=== PATIENT | male | born 1960 | race Caucasian/White ===

== ENCOUNTER 2024-11-08 08:10 | Outpatient (REF) | payer BC, SELFPAY ==
--- NOTE | ~2024-11-08 | XR_ITS ---
EXAMINATION: XR SHOULDER 2 OR MORE VIEWS RIGHT HISTORY: M25.519 - Pain in unspecified shoulder COMPARISON: There are no prior studies available for comparison. FINDINGS: Three views of the right shoulder are submitted. Osseous mineralization is normal. There is no fracture or dislocation. Glenohumeral joint is maintained. There is mild osteoarthritis AC joint with joint space narrowing and osteophyte formation. The soft tissues are unremarkable. XR/XR shoulder RT min 2V IMPRESSION: Mild osteoarthritis of the AC joint. Electronically signed by: Kamaljit Ferrara MD 11/08/2024 01:36 PM EDT
--- OUTSIDE RECORDS SUMMARY | 2024-11-09 08:30 | XMS_ITS | Clinical Summary ---
Author Organization [facility] [address] [facility] l[address] Address [address] [place] [address] Phone Care Team Providers Care Quality Control Auditor Name Role Phone Samuel Villareal MD Primary Care Provider [phone] Allergies No known active allergies Medications losartan (COZAAR) 50 mg tablet TAKE 1 TABLET BY MOUTH EVERY DAY 90 tablet 1 07/27/2024 Active Active Problems Problem Noted Date Diagnosed Date Overweight (BMI 25.0-29.9) 05/17/2023 Hypertriglyceridemia 09/22/2021 Overview (2024): ASCVD risk 8.2% in 08/2021 Primary hypertension 09/22/2021 Encounters Date Type Department Care Team Description 10/17/2024 Telephone Adult Medicine [facility] [address] [place] [phone] Samuel Villareal MD 10/11/2024 Telephone Adult Medicine - [facility] [address] [place] [phone] Samuel Villareal MD [facility] 09/24/2024 Telephone Adult Medicine [facility] [address] [place] [phone] Samuel Villareal MD Referral 09/20/2024 10:57 AM EST - 09/20/2024 11:59 PM EST Hospital Encounter Xray - [facility] [address] [place] [phone] Acute pain of right shoulder Discharge Disposition: Home or Self Care 09/20/2024 10:45 AM EST Office Visit Adult Medicine [address] [phone] Samuel Villareal MD Acute pain [...] 8:45 AM EDT Office Visit Adult Medicine [facility] [address] [place] [phone] Samuel Villareal MD [address] [place] [address] Health Maintenance Due Date Last Done Comments [...] LAB CHEMISTRY METHOD 09/21/2024 2:[address] [facility] Blood Venous blood specimen / Unknown Venipuncture / Unknown 09/21/2024 9:00 AM EST 09/21/2024 9:[address] [facility] - 09/21/2024 2:50 PM EST The Siemens Advia Centaur Chemiluminescent Immunoassay is used. Results obtained with different assay methods or kits cannot be used interchangeably. Results cannot be interpreted as absolute evidence of the presence or absence of malignant disease. Kelle GRIFFIN LAB BLOOD ORDERABLES Final Resul t Performing Organization Address [facility]/ZIP Co de Phone Number [facility] [address] [place] [address], [place] [phone] * (ABNORMAL) Lipid panel with reflex to direct LDL (09/21/2024 9:00 AM EST) Cholesterol 200 0 - 200 mg/dL LAB CHEMISTRY METHOD 09/21/2024 1:[address] [facility] Triglycerides 430(H) 0 - 150 mg/dL LAB CHEMISTRY METHOD 09/21/2024 1:[address] [facility] HDL 53 >=40 mg/dL LAB CHEMISTRY METHOD 09/21/2024 1:34 PM [facility] LDL Calculated 61 0 - 100 mg/dL LAB CHEMISTRY METHOD 09/21/2024 1:34 PM [facility] Comment:Unable to calculate when triglycerides >400 mg/dL. VLDL Cholesterol Juarez 86 mg/dL LAB CHEMISTRY METHOD 09/21/2024 1:[address] [facility] Comment:Unable to calculate when triglycerides >400 mg/dL. Non HDL Chol. (LDL+VLDL) 147(H) <145 mg/dL LAB CHEMISTRY METHOD 09/21/2024 1:[address] [facility] Comment:Unable to calculate when triglycerides >400 mg/dL. Chol/HDL Ratio 3.8 0.0 - 4.4 LAB CHEMISTRY METHOD 09/21/2024 1:[address] [facility] Blood Venous blood specimen / Unknown Venipuncture / Unknown 09/21/2024 9:00 AM EST 09/21/2024 9:00 AM EST Kelle GRIFFIN LAB BLOOD ORDERABLES Final Resul t Performing Organization Address City/[facility]/ZIP Co de Phone Number [facility] [address] [place] [address], [place] [phone] * (ABNORMAL) CBC auto differential (09/21/2024 9:00 AM EST) [facility] WBC 5.6 4.8 - 10.8 K/mcL LAB HEMETOLOGY METHOD 09/21/2024 11:36 AM [facility] RBC 4.90 4.50 - 5.50 M/mcL LAB HEMETOLOGY METHOD 09/21/2024 11:36 AM [facility] Hemoglobin 15.9 13.5 - 17.5 g/dL LAB HEMETOLOGY METHOD 09/21/2024 11:36 AM [facility] Hematocrit 45.7 42.0 - 54.0 % LAB HEMETOLOGY METHOD 09/21/2024 11:36 AM [facility] MCV 92.7 79.0 - 98.0 FL LAB HEMETOLOGY METHOD 09/21/2024 11:36 AM [facility] MCH 32.3(H) 27.0 - 32.0 pcg LAB HEMETOLOGY METHOD 09/21/2024 11:36 AM [facility] MCHC 34.8 32.0 - 37.0 g/dL LAB HEMETOLOGY METHOD 09/21/2024 11:36 AM [facility] RDW 11.2 11.0 - 15.0 % LAB HEMETOLOGY METHOD 09/21/2024 11:36 AM [facility] Platelets 279 130 - 400 K/[facility] LAB HEMETOLOGY METHOD 09/21/2024 11:36 AM [facility] MPV 10.4 7.0 - 11.0 FL LAB HEMETOLOGY METHOD 09/21/2024 11:36 AM [facility] NRBC 0.0 <1.0 % LAB HEMETOLOGY METHOD 09/21/2024 11:36 AM [facility] NRBC Absolute 0.00 <0.10 K/mcL LAB HEMETOLOGY METHOD 09/21/2024 11:36 AM [facility] Neutrophils Relative 63.9 % LAB HEMETOLOGY METHOD 09/21/2024 11:36 AM [facility] Lymphocytes Relative 22.0 % LAB HEMETOLOGY METHOD 09/21/2024 11:36 AM [facility] Monocytes Relative 10.3 % LAB HEMETOLOGY METHOD 09/21/2024 11:36 AM [facility] Eosinophils Relative 2.5 % LAB HEMETOLOGY METHOD 09/21/2024 11:36 AM [facility] Basophils Relative 0.9 % LAB HEMETOLOGY METHOD 09/21/2024 11:36 AM [facility] Immature Granulocytes Relative 0.4 % LAB HEMETOLOGY METHOD 09/21/2024 11:36 AM [facility] Neutrophils Absolute 3.60 1.50 - 7.00 K/mcL LAB HEMETOLOGY METHOD 09/21/2024 11:36 AM [facility] Lymphocytes Absolute 1.24 1.00 - 5.00 K/mcL LAB HEMETOLOGY METHOD 09/21/2024 11:36 AM [facility] Monocytes Absolute 0.58 0.20 - 1.00 K/mcL LAB HEMETOLOGY METHOD 09/21/2024 11:36 AM [facility] Eosinophils Absolute 0.14 0.00 - 0.50 K/mcL LAB HEMETOLOGY METHOD 09/21/2024 11:36 AM [facility] Basophils Absolute 0.05 0.00 - 0.20 K/mcL LAB HEMETOLOGY METHOD 09/21/2024 11:36 AM [facility] Immature Granulocytes Absolute 0.02 0.00 - 0.03 K/mcL LAB HEMETOLOGY METHOD 09/21/2024 11:36 AM [facility] Blood Venous blood specimen / Unknown Venipuncture / Unknown 09/21/2024 9:00 AM EST 09/21/2024 9:00 AM EST us Kelle GRIFFIN LAB BLOOD ORDERABLES Final Resul t [facility] [address] [place] [address], [place] [phone] * (ABNORMAL) Comprehensive metabolic panel (09/21/2024 9:00 AM EST) Sodium 138 133 - 145 mmol/L LAB CHEMISTRY METHOD 09/21/2024 1:22 PM [facility] Potassium 4.4 3.5 - 5.5 mmol/L LAB CHEMISTRY METHOD 09/21/2024 1:22 PM [facility] Chloride 107 96 - 110 mmol/L LAB CHEMISTRY METHOD 09/21/2024 1:22 PM [facility] CO2 25 21 - 32 mmol/L LAB CHEMISTRY METHOD 09/21/2024 1:22 PM [facility] Anion Gap 6 3 - 11 LAB CHEMISTRY METHOD 09/21/2024 1:22 PM [facility] Glucose 106(H) 70 - 100 mg/dL LAB CHEMISTRY METHOD 09/21/2024 1:22 PM [facility] BUN 15 5 - 25 mg/dL LAB CHEMISTRY METHOD 09/21/2024 1:22 PM [facility] Creatinine 1.04 0.70 - 1.30 mg/dL LAB CHEMISTRY METHOD 09/21/2024 1:22 PM [facility] eGFR 81 >=60 mL/min/1. 73m2 LAB CHEMISTRY METHOD 09/21/2024 1:22 PM [facility] Comment:Calculation based on the??Chronic Kidney Disease Epidemiology Collaboration (CKD-EPI) equation refit??without adjustment for race. BUN/Creatinine Ratio 14.4 LAB CHEMISTRY METHOD 09/21/2024 1:22 PM [facility] Calcium 9.7 8.5 - 10.5 mg/dL LAB CHEMISTRY METHOD 09/21/2024 1:[address] [facility] AST (SGOT) 24 10 - 42 unit/L LAB CHEMISTRY METHOD 09/21/2024 1:22 PM [facility] ALT (SGPT) 45 10 - 60 unit/L LAB CHEMISTRY METHOD 09/21/2024 1:22 PM [facility] Alkaline Phosphatase 99 42 - 121 unit/L LAB CHEMISTRY METHOD 09/21/2024 1:[address] [facility] Total Protein 7.8 6.0 - 8.0 g/dL LAB CHEMISTRY METHOD 09/21/2024 1:22 PM [facility] Albumin 4.5 3.2 - 5.0 g/dL LAB CHEMISTRY METHOD 09/21/2024 1:22 PM [facility] Total Bilirubin 1.8(H) 0.0 - 1.4 mg/dL LAB CHEMISTRY METHOD 09/21/2024 1:[address] [facility] Blood Venous blood specimen / Unknown Venipuncture / Unknown 09/21/2024 9:00 AM EST 09/21/2024 9:00 AM EST us Kelle GRIFFIN LAB BLOOD ORDERABLES Final Resul t [facility] [address] [place] [address], * XR Shoulder 2+ Views Right (09/20/2024 11:06 AM EST) Anatomical Region Laterality Modality Upper Extremities, Shoulder Right Radi ographic Imaging 09/20/2024 8:08 PM EST Impressions 09/20/2024 8:11 PM EST No fracture or dislocation. ??Degenerative changes at the acromioclavicular joint. POS - [id number] -------- FINAL REPORT -------- Dictated By: Nisha Matos Dictated Date: 09/20/2024 20:08 ET Assigned Physician: Nisha Matos Reviewed and Electronically Signed By: Nisha Matos Signed Date: 09/20/2024 20:11 ET Workstation ID: [id number] Transcribed By: Self Edit Transcribed Date: 09/20/2024 [...] Degenerative changes at the acromioclavicularjoint. POS - [id number] -------- FINAL REPORT -------- Dictated By: Nisha Matos Dictated Date: 09/20/2024 20:08 ET Assigned Physician: Nisha Matos Reviewed and Electronically Signed By: Nisha Matos Signed Date: 09/20/2024 20:11 ET Workstation ID: [id number] Transcribed By: Self Edit Transcribed Date: 09/20/2024 [...] Most Recently Relevant to Health Maintenance Insurance [facility] Care Teams Quality Control Auditor Relationship Specialty Start Date End Date Samuel Villareal MD [address] [place] [id number] PCP - General 07/01/03
== END 2024-11-08 08:11 | disposition home or self-care (01) ==
LOC: HO.HOSX 08:10
PROVIDERS: Visit Provider Physician Assistant
DX: M75.101 Unspecified rotator cuff tear or rupture of right shoulder, not specified as traumatic (principal); S46.001A Unspecified injury of muscle(s) and tendon(s) of the rotator cuff of right shoulder, initial encounter
CPT/HCPCS: 73030

== ENCOUNTER 2024-11-08 09:23 | Outpatient (AMB) | payer BC, SELFPAY ==
--- NOTE | 2024-11-08 09:51 | A.OFFVIS_ITS ---
Vital Signs 11/08/24 09:56 Height 6 ft Weight 200 lb BMI 27.1 Handedness Right Intake Visit Reasons: New Pt - right shoulder pain Intake Note: Angelito is a 64 year old right hand dominant male who presents today as a new patient for a evaluation of his right shoulder pain, DOI 06/2024. Hx of [facility]. Patient reports ongoing pain for about for a couple months. He states that his pain is on the anterior aspect of the shoulder and it moves down to his bicep. Patient reports that his pain is worse when he is overhead reaching and laying on his side. He states that he hasn't taken medication for the pain just PT. Allergies No Known Allergies Allergy (Verified 11/08/24 09:55) HPI HPI New Pt - right shoulder pain: Details: The patient is a 64-year-old right hand dominant male presenting with right shoulder pain and limited range of motion. This condition arose following a fall on ice on July 14, where the patient landed directly on the right shoulder. Initially, the discomfort was mild, but the range of motion has been significantly limited. The patient reports an inability to raise the shoulder above shoulder level, a notable change from the full range of motion before the injury. The patient has engaged in six to seven physical therapy sessions since August, which have led to some improvement but not full recovery of motion. [facility] Social History (Updated 11/08/24 @ 09:56 by [place]) Alcohol intake: current Alcohol intake frequency: 0-2 drinks per day Patient Tobacco Use Status: Never used Tobacco Current occupational status: retired Current occupation: right hand dominant Review of Systems Const All systems reviewed & are unremarkable except as noted in HPI and below Physical Exam Vital Signs: BMI result Body Mass Index 27.1 Const General: cooperative, healthy appearing and no acute distress Resp Effort & Inspection: normal respiratory effort and able to speak in complete sentences Cardio Rate: regular rate Peripheral pulses: Peripheral pulses 2+ throughout Skin Lesions: no lesions Rashes: no rashes Extrem Other: Right shoulder: Forward flexion and abduction to 80 degrees. Pain with cross- body reach. 3/5 strength with empty can, belly press and lift-off. Negative drop arm. NVI. Assessment & Plan Assessment & Plan (1) Painful arc syndrome of right shoulder: Code(s): M75.101 - Unspecified rotator cuff tear or rupture of right shoulder, not specified as traumatic Category: Medical (2) Injury of right rotator cuff: Code(s): S46.001A - Unspecified injury of muscle(s) and tendon(s) of the rotator cuff of right shoulder, initial encounter Category: Medical Plan During the visit, I explained to the patient the potential for a rotator cuff injury contributing to his shoulder symptoms, and the need for an MRI to better assess the internal structures of the shoulder. The patient expressed understanding and agreed to proceed with scheduling the MRI. We discussed the possibility of a cortisone injection later, outlining its benefits in reducing inflammation but also noting that it does not address the underlying cause permanently. I reassured the patient that a referral to a specialist does not imply an automatic need for surgery and may assist in more accurate interpretations of advanced imaging. The patient should contact me after obtaining the MRI for further discussion and determination of the next steps. X-rays of the right shoulder which were obtained while in the office today and were reviewed by me, Sloane Conley PA-C, revealed no acute fracture dislocation. Orders: Orders XR shoulder RT min 2V Today M25.519 - Pain in unspecified shoulder Coding Level of Care Code New Pt Level 4 (22902) Diagnoses Painful arc syndrome of right shoulder M75.101 Injury of right rotator cuff S46.001A
[2024-11-08 09:56] VITALS: BMI 27.1
--- OUTSIDE RECORDS SUMMARY | 2024-11-08 10:37 | XMS_ITS | Clinical Summary ---
Author Organization [facility] [address] [facility] Address [address] [place] [address] Phone Care Team Providers Care Fire Chief Name Role Phone Samuel Villareal MD Primary Care Provider [phone] Allergies No known active allergies Medications losartan (COZAAR) 50 mg tablet TAKE 1 TABLET BY MOUTH EVERY DAY 90 tablet 1 07/27/2024 Active Active Problems Problem Noted Date Diagnosed Date Overweight (BMI 25.0-29.9) 05/17/2023 Hypertriglyceridemia 09/22/2021 Overview (2024): ASCVD risk 8.2% in 08/2021 Primary hypertension 09/22/2021 Encounters Date Type Department Care Team Description 10/17/2024 Telephone Adult Medicine [facility] [address] [place] [phone] Samuel Villareal MD 10/11/2024 Telephone Adult Medicine - [place] [address] [place] [phone] Samuel Villareal MD [facility] 09/24/2024 Telephone Adult Medicine [facility] [address] [place] [phone] Samuel Villareal MD Referral 09/20/2024 10:57 AM EST - 09/20/2024 11:59 PM EST Hospital Encounter Xray - [place] [address] [place] [phone] Acute pain of right shoulder Discharge Disposition: Home or Self Care 09/20/2024 10:45 AM EST Office Visit Adult Medicine [address] [phone] Samuel Villareal MD Acute pain of right shoulder (Primary Dx) from Last 3 Months Immunizations Name Administration Dates Next Due Td Tetanus diptheria (Tdvax) 7yo and older 09/03,09/04/2003 Tdap Tetanus diptheria acell ular pertussis (Boostrix; Adacel) 7yo and older 06/07/2011 Surgical History Surgery Date Site/Laterality Comments COLONOSCOPY 08/16/11 PROCEDURE: HISTORICAL COLONOSCOPY; COMMENT: normal Medical History Medical History Date Comments Patient denies medical problems DX:Patient denies medical problems Family History Medical History Relation Name Comments Coronary artery disease Brother 1 Hypertension Brother 1 Relation Name Status Comments Brother 1 Alive Brother 2 Alive Father (Age 59) ?Liver kezia lure, alcohol use Maternal Grandfather hx unkn own Maternal Grandmother hx unkn own Mother ?lung cancer Paternal Grandfather hx unkn own Paternal Grandmother hx unkn own Social History Tobacco Use Types Packs/Day Years Used Date Smoking Tobacco: Never Smokeless Tobacco: Never Tobacco Cessation:Counseling Given: Not Answered Alcohol Use Standard Drinks/Week Comments Yes 0 (1 standard drink = 0.6 oz pur e alcohol) Sex and Gender Information Value Date Recorded Sex Assigned at Not on file Legal Sex Male 4:37 PM EST Gender Identity Not on file Sexual Orientation Not on file Obstetrics History Last Filed Vital Signs Vital Sign Reading Time Taken Comments Blood Pressure 136/87 09/20/2024 10:34 AM EST Pulse 86 09/20/2024 10:34 AM EST Temperature 36.7 ??C (98 ??F) 09/20/2024 10:34 AM EST Respiratory Rate - - Oxygen Saturation - - Inhaled Oxygen Concentration - - Weight 92.1 kg (203 lb) 09/20/2024 10:34 AM EST Height 182.9 cm (6') 09/20/2024 10:34 AM EST Body Mass Index 27.53 09/20/2024 10:34 AM EST Plan of Treatment Upcoming Encounters Date Type Department Care Team (Late st Contact Info) Description 03/21/2025 8:45 AM EDT Office Visit Adult Medicine [facility] [address] [place] [phone] Samuel Villareal MD [address] [place] [address] Health Maintenance Due Date Last Done Comments Pneumococcal Vaccine: 50+ Years (1 of 1 - PCV) 2011 Depression Screening 07/04/2022 HIV Screening 07/04/2022 Social Influencers of Health Screening 07/04/2022 COVID-19 Vaccine (3 - 2023-2 5 season) 2024 12/09/2020, 11/11/2020 Influenza Vaccine (Season Ended) 2025 Hypertension/CHF/CAD Annual BMP Blood Test 09/21/2025 09/21/2024, 05/17/2023 Cholesterol Screening (Lipid Panel) 09/21/2029 09/21/2024, 05/17/2023 DTaP,Tdap,and Td Vaccines (4 - Td or Tdap) 09/03/2031 09/03/2021, 06/07/2011, 09/04/2003 Colorectal Cancer Screening: Colonoscopy 12/29/2031 12/28/2021 RSV Immunization Adult Patients (1 - 1-dose 75+ series) 2036 Hepatitis C Screening Completed 04/14/2015 Zoster Vaccines Completed 03/04/2023, 12/10/2022 HIB Vaccines Aged Out No longer eligi ble based on patient's age to complete this topic HPV Vaccines Aged Out No longer eligi ble based on patient's age to complete this topic Hepatitis A Vaccines Aged Out No long er eligible based on patient's age to complete this topic Hepatitis B Vaccines Aged Out No long er eligible based on patient's age to complete this topic IPV Vaccines Aged Out No longer eligi ble based on patient's age to complete this topic MMR Vaccines Aged Out No longer eligi ble based on patient's age to complete this topic Meningococcal ACWY Vaccine Aged Out N o longer eligible based on patient's age to complete this topic Meningococcal B Vaccine Aged Out No l onger eligible based on patient's age to complete this topic Pneumococcal Vaccine: Pediatrics (0 to 5 Years) and At-Risk Patients (6 to 64 Years) Aged Out No longer eligible b ased on patient's age to complete this topic RSV Immunization Patients Under 20 months Aged Out No longer eligible b ased on patient's age to complete this topic Varicella Vaccines Aged Out No longer eligible based on patient's age to complete this topic Procedures Procedure Name Priority Date/Time Associated Diagnosis Comments CBC WITH AUTO DIFFERENTIAL Routine 09/21/2024 9:00 AM EST Primary hypertension PROSTATE SPECIFIC ANTIGEN SCREEN Routine 09/21/2024 9:00 AM EST Prostate cancer screening COMPREHENSIVE METABOLIC PANEL Routine 09/21/2024 9:00 AM EST Primary hypertension CBC AND DIFFERENTIAL Routine 09/21/2024 9:00 AM EST Primary hypertension LIPID PANEL WITH REFLEX TO DIRECT LDL Routine 09/21/2024 9:00 AM EST Hypertriglyceridemia XR SHOULDER 2+ VIEWS RIGHT Routine 09/20/2024 11:06 AM EST Acute pain of right shoulder HM COLONOSCOPY Routine 12/28/2021 HEPATITIS C SCREENING Routine 04/14/2015 from Last 3 Months or Most Recently Relevant to Health Maintenance Results * Prostate specific antigen screen (09/21/2024 9:00 AM EST) PSA 1.43 0.00 - 4.00 ng/mL LAB CHEMISTRY METHOD 09/21/2024 2:50 PM EST [facility] Blood Venous blood specimen / Unknown Venipuncture / Unknown 09/21/2024 9:00 AM EST 09/21/2024 9:00 AM EST Narrative [facility] - 09/21/2024 2:50 PM EST The Siemens Advia Centaur Chemiluminescent Immunoassay is used. Results obtained with different assay methods or kits cannot be used interchangeably. Results cannot be interpreted as absolute evidence of the presence or absence of malignant disease. Kelle GRIFFIN LAB BLOOD ORDERABLES Final Resul t Performing Organization Address [facility]/ZIP Co de Phone Number [facility] [address] [place] [address], [place] [phone] * (ABNORMAL) Lipid panel with reflex to direct LDL (09/21/2024 9:00 AM EST) Cholesterol 200 0 - 200 mg/dL LAB CHEMISTRY METHOD 09/21/2024 1:34 PM EST [facility] Triglycerides 430(H) 0 - 150 mg/dL LAB CHEMISTRY METHOD 09/21/2024 1:34 PM EST [facility] HDL 53 >=40 mg/dL LAB CHEMISTRY METHOD 09/21/2024 1:34 PM [facility] LDL Calculated 61 0 - 100 mg/dL LAB CHEMISTRY METHOD 09/21/2024 1:34 PM [facility] Comment:Unable to calculate when triglycerides >400 mg/dL. VLDL Cholesterol Juarez 86 mg/dL LAB CHEMISTRY METHOD 09/21/2024 1:34 PM EST [facility] Comment:Unable to calculate when triglycerides >400 mg/dL. Non HDL Chol. (LDL+VLDL) 147(H) <145 mg/dL LAB CHEMISTRY METHOD 09/21/2024 1:34 PM EST [facility] Comment:Unable to calculate when triglycerides >400 mg/dL. Chol/HDL Ratio 3.8 0.0 - 4.4 LAB CHEMISTRY METHOD 09/21/2024 1:34 PM EST [facility] Blood Venous blood specimen / Unknown Venipuncture / Unknown 09/21/2024 9:00 AM EST 09/21/2024 9:00 AM EST Kelle GRIFFIN LAB BLOOD ORDERABLES Final Resul t Performing Organization Address City/[facility]/ZIP Co de Phone Number [facility] [address] [place] [address], [place] [phone] * (ABNORMAL) CBC auto differential (09/21/2024 9:00 AM EST) [facility] WBC 5.6 4.8 - 10.8 K/mcL LAB HEMETOLOGY METHOD 09/21/2024 11:36 AM [facility] RBC 4.90 4.50 - 5.50 M/mcL LAB HEMETOLOGY METHOD 09/21/2024 11:36 AM [facility] Hemoglobin 15.9 13.5 - 17.5 g/dL LAB HEMETOLOGY METHOD 09/21/2024 11:36 AM [facility] Hematocrit 45.7 42.0 - 54.0 % LAB HEMETOLOGY METHOD 09/21/2024 11:36 AM [facility] MCV 92.7 79.0 - 98.0 FL LAB HEMETOLOGY METHOD 09/21/2024 11:36 AM [facility] MCH 32.3(H) 27.0 - 32.0 pcg LAB HEMETOLOGY METHOD 09/21/2024 11:36 AM [facility] MCHC 34.8 32.0 - 37.0 g/dL LAB HEMETOLOGY METHOD 09/21/2024 11:36 AM [facility] RDW 11.2 11.0 - 15.0 % LAB HEMETOLOGY METHOD 09/21/2024 11:36 AM [facility] Platelets 279 130 - 400 K/[facility] LAB HEMETOLOGY METHOD 09/21/2024 11:36 AM [facility] MPV 10.4 7.0 - 11.0 FL LAB HEMETOLOGY METHOD 09/21/2024 11:36 AM [facility] NRBC 0.0 <1.0 % LAB HEMETOLOGY METHOD 09/21/2024 11:36 AM [facility] NRBC Absolute 0.00 <0.10 K/mcL LAB HEMETOLOGY METHOD 09/21/2024 11:36 AM [facility] Neutrophils Relative 63.9 % LAB HEMETOLOGY METHOD 09/21/2024 11:36 AM [facility] Lymphocytes Relative 22.0 % LAB HEMETOLOGY METHOD 09/21/2024 11:36 AM [facility] Monocytes Relative 10.3 % LAB HEMETOLOGY METHOD 09/21/2024 11:36 AM [facility] Eosinophils Relative 2.5 % LAB HEMETOLOGY METHOD 09/21/2024 11:36 AM [facility] Basophils Relative 0.9 % LAB HEMETOLOGY METHOD 09/21/2024 11:36 AM [facility] Immature Granulocytes Relative 0.4 % LAB HEMETOLOGY METHOD 09/21/2024 11:36 AM [facility] Neutrophils Absolute 3.60 1.50 - 7.00 K/mcL LAB HEMETOLOGY METHOD 09/21/2024 11:36 AM [facility] Lymphocytes Absolute 1.24 1.00 - 5.00 K/mcL LAB HEMETOLOGY METHOD 09/21/2024 11:36 AM [facility] Monocytes Absolute 0.58 0.20 - 1.00 K/mcL LAB HEMETOLOGY METHOD 09/21/2024 11:36 AM [facility] Eosinophils Absolute 0.14 0.00 - 0.50 K/mcL LAB HEMETOLOGY METHOD 09/21/2024 11:36 AM [facility] Basophils Absolute 0.05 0.00 - 0.20 K/mcL LAB HEMETOLOGY METHOD 09/21/2024 11:36 AM [facility] Immature Granulocytes Absolute 0.02 0.00 - 0.03 K/mcL LAB HEMETOLOGY METHOD 09/21/2024 11:36 AM [facility] Blood Venous blood specimen / Unknown Venipuncture / Unknown 09/21/2024 9:00 AM EST 09/21/2024 9:00 AM EST us Kelle GRIFFIN LAB BLOOD ORDERABLES Final Resul t [facility] [address] [place] [address], [place] [phone] * (ABNORMAL) Comprehensive metabolic panel (09/21/2024 9:00 AM EST) Sodium 138 133 - 145 mmol/L LAB CHEMISTRY METHOD 09/21/2024 1:22 PM [facility] Potassium 4.4 3.5 - 5.5 mmol/L LAB CHEMISTRY METHOD 09/21/2024 1:22 PM [facility] Chloride 107 96 - 110 mmol/L LAB CHEMISTRY METHOD 09/21/2024 1:22 PM [facility] CO2 25 21 - 32 mmol/L LAB CHEMISTRY METHOD 09/21/2024 1:22 PM [facility] Anion Gap 6 3 - 11 LAB CHEMISTRY METHOD 09/21/2024 1:22 PM [facility] Glucose 106(H) 70 - 100 mg/dL LAB CHEMISTRY METHOD 09/21/2024 1:22 PM [facility] BUN 15 5 - 25 mg/dL LAB CHEMISTRY METHOD 09/21/2024 1:22 PM [facility] Creatinine 1.04 0.70 - 1.30 mg/dL LAB CHEMISTRY METHOD 09/21/2024 1:22 PM [facility] eGFR 81 >=60 mL/min/1. 73m2 LAB CHEMISTRY METHOD 09/21/2024 1:22 PM [facility] Comment:Calculation based on the??Chronic Kidney Disease Epidemiology Collaboration (CKD-EPI) equation refit??without adjustment for race. BUN/Creatinine Ratio 14.4 LAB CHEMISTRY METHOD 09/21/2024 1:22 PM [facility] Calcium 9.7 8.5 - 10.5 mg/dL LAB CHEMISTRY METHOD 09/21/2024 1:22 PM EST [facility] AST (SGOT) 24 10 - 42 unit/L LAB CHEMISTRY METHOD 09/21/2024 1:22 PM [facility] ALT (SGPT) 45 10 - 60 unit/L LAB CHEMISTRY METHOD 09/21/2024 1:22 PM [facility] Alkaline Phosphatase 99 42 - 121 unit/L LAB CHEMISTRY METHOD 09/21/2024 1:22 PM EST [facility] Total Protein 7.8 6.0 - 8.0 g/dL LAB CHEMISTRY METHOD 09/21/2024 1:22 PM [facility] Albumin 4.5 3.2 - 5.0 g/dL LAB CHEMISTRY METHOD 09/21/2024 1:22 PM [facility] Total Bilirubin 1.8(H) 0.0 - 1.4 mg/dL LAB CHEMISTRY METHOD 09/21/2024 1:22 PM EST [facility] Blood Venous blood specimen / Unknown Venipuncture / Unknown 09/21/2024 9:00 AM EST 09/21/2024 9:00 AM EST us Kelle GRIFFIN LAB BLOOD ORDERABLES Final Resul t [facility] [address] [place] [address], * XR Shoulder 2+ Views Right (09/20/2024 11:06 AM EST) Anatomical Region Laterality Modality Upper Extremities, Shoulder Right Radi ographic Imaging 09/20/2024 8:08 PM EST Impressions 09/20/2024 8:11 PM EST No fracture or dislocation. ??Degenerative changes at the acromioclavicular joint. POS - [id number] -------- FINAL REPORT -------- Dictated By: Nisha Matos Dictated Date: 09/20/2024 20:08 ET Assigned Physician: Nisha Matos Reviewed and Electronically Signed By: Nisha Matos Signed Date: 09/20/2024 20:11 ET Workstation ID: [id number] Transcribed By: Self Edit Transcribed Date: 09/20/2024 20:08 ET Narrative 09/20/2024 8:11 PM EST EXAM: Right shoulder x-ray HISTORY: Right shoulder pain. ??History of a fall on ice in June 2024. COMPARISON: None FINDINGS: 4 views performed. No fracture detected. ??No dislocation. ??Mild to moderate degenerative changes at the acromioclavicular joint with joint space narrowing and spurring. ??No appreciable degenerative changes at the glenohumeral joint. ??No destructive bone lesion. ??No soft tissue calcifications. Procedure Note Nisha Matos MD - 09/20/2024 EXAM: Right shoulder x-ray HISTORY: Right shoulder pain. History of a fall on ice in June2024. COMPARISON: None FINDINGS: 4 views performed. No fracture detected. No dislocation. Mild to moderate degenerativechanges at the acromioclavicular joint with joint space narrowing andspurring. No appreciable degenerative changes at the glenohumeral joint.No destructive bone lesion. No soft tissue calcifications. IMPRESSION: No fracture or dislocation. Degenerative changes at the acromioclavicularjoint. POS - [id number] -------- FINAL REPORT -------- Dictated By: Nisha Matos Dictated Date: 09/20/2024 20:08 ET Assigned Physician: Nisha Matos Reviewed and Electronically Signed By: Nisha Matos Signed Date: 09/20/2024 20:11 ET Workstation ID: [id number] Transcribed By: Self Edit Transcribed Date: 09/20/2024 20:08 ET C Jonny Villareal MD IMG XR PROCEDURES Final Result * Colonoscopy (12/28/2021) Colonoscopy No interpreta tion,abstr acted Anatomical Region Laterality Modality Other Historical Provider HEALTH MAINTENANCE Final Result * Hepatitis C Screening (04/14/2015) Hepatitis C Screening Abstracted Historical Provider HEALTH MAINTENANCE Final Result from Last 3 Months or Most Recently Relevant to Health Maintenance Insurance [facility] Care Teams Fire Chief Relationship Specialty Start Date End Date Samuel Villareal MD [address] [place] [phone] PCP - General 07/01/03
== END 2024-11-08 10:24 | disposition home or self-care (01) ==
LOC: HO.HOS 09:23
PROVIDERS: PCP Pediatrics; Visit Provider Physician Assistant
DX: M75.101 Unspecified rotator cuff tear or rupture of right shoulder, not specified as traumatic (principal); S46.001A Unspecified injury of muscle(s) and tendon(s) of the rotator cuff of right shoulder, initial encounter
CPT/HCPCS: 99204

== ENCOUNTER → 2024-11-08 09:27 | Outpatient (BNV) | payer BC, SELFPAY | PROVIDERS: Visit Provider Radiology Diagnostic Radiology | DX: M25.511 Pain in right shoulder (principal); M19.011 Primary osteoarthritis, right shoulder | CPT/HCPCS: 73030 ==

== ENCOUNTER 2024-11-13 08:09 | Outpatient (REF) | payer BC, SELFPAY ==
--- NOTE | ~2024-11-13 | MR_ITS ---
CLINICAL HISTORY: M75.101 - Unspecified rotator cuff tear or rupture of right shoulder, no... MR right shoulder without gadolinium Comparison: None Findings: No acute fracture or pathologic bone lesion. Moderate acromioclavicular degenerative change with mild capsular hypertrophy. Type 1 acromion. There is subdeltoid, subacromial, and a small amount of subcoracoid fluid. Small amount of fluid in the biceps tendon sheath. Complete tear supraspinatus tendon. Approximately 2.6 cm of retraction. Moderate atrophy of the supraspinatus muscle. Subscapularis, infraspinatus, and teres minor tendons are intact. No muscle atrophy. No tears of the long head of biceps tendon. Glenoid labrum is intact. IMPRESSION: 1. Complete supraspinatus tear with retraction and muscle atrophy. 2. Subdeltoid, subacromial, and subcoracoid fluid. 3. Moderate acromioclavicular degenerative change. This document has been electronically signed by: Theo Jacinto MD on 11/15/2024 04:15:33
--- OUTSIDE RECORDS SUMMARY | 2024-11-13 08:22 | XMS_ITS | Clinical Summary ---
Author Organization [facility] [address] [facility] l[address] Address [address] [place] [address] Phone Care Team Providers Care Telephone Operator Receptionist Name Role Phone Samuel Villareal MD Primary Care Provider [phone] Allergies No known active allergies Medications losartan (COZAAR) 50 mg tablet TAKE 1 TABLET BY MOUTH EVERY DAY 90 tablet 1 07/27/2024 Active Active Problems Problem Noted Date Diagnosed Date Overweight (BMI 25.0-29.9) 05/17/2023 Hypertriglyceridemia 09/22/2021 Overview (2024): ASCVD risk 8.2% in 08/2021 Primary hypertension 09/22/2021 Encounters Date Type Department Care Team Description 10/17/2024 Telephone Adult Medicine [facility] [address] [place] [phone] Samuel Villareal MD 10/11/2024 Telephone Adult Medicine - [facility] [address] [place] [phone] Samuel Villareal MD [facility] 09/24/2024 Telephone Adult Medicine [facility] [address] [place] [phone] Samuel Villareal MD Referral 09/20/2024 10:57 AM EST - 09/20/2024 11:59 PM EST Hospital Encounter Xray - [facility] [address] [place] [phone] Acute pain of right shoulder Discharge Disposition: Home or Self Care 09/20/2024 10:45 AM EST Office Visit Adult Medicine [address] [phone] Samuel Villareal MD Acute pain [...] 8:45 AM EDT Office Visit Adult Medicine [facility] [address] [place] [phone] Samuel Villareal MD [address] [place] [address] Health Maintenance Due Date Last Done Comments [...] LAB CHEMISTRY METHOD 09/21/2024 2:50 PM EST [facility] Blood Venous blood specimen / Unknown Venipuncture / Unknown 09/21/2024 9:00 AM EST 09/21/2024 9:00 AM EST Narrative [facility] - 09/21/2024 2:50 PM EST The Siemens Advia Centaur Chemiluminescent Immunoassay is used. Results obtained with different assay methods or kits cannot be used interchangeably. Results cannot be interpreted as absolute evidence of the presence or absence of malignant disease. Kelle GRIFFIN LAB BLOOD ORDERABLES Final Resul t Performing Organization Address [facility]/ZIP Co de Phone Number [facility] [address] [place] [address], [place] [phone] * (ABNORMAL) Lipid panel with reflex to direct LDL (09/21/2024 9:00 AM EST) Cholesterol 200 0 - 200 mg/dL LAB CHEMISTRY METHOD 09/21/2024 1:34 PM EST [facility] Triglycerides 430(H) 0 - 150 mg/dL LAB CHEMISTRY METHOD 09/21/2024 1:34 PM EST [facility] HDL 53 >=40 mg/dL LAB CHEMISTRY METHOD 09/21/2024 1:34 PM [facility] LDL Calculated 61 0 - 100 mg/dL LAB CHEMISTRY METHOD 09/21/2024 1:34 PM [facility] Comment:Unable to calculate when triglycerides >400 mg/dL. VLDL Cholesterol Juarez 86 mg/dL LAB CHEMISTRY METHOD 09/21/2024 1:34 PM EST [facility] Comment:Unable to calculate when triglycerides >400 mg/dL. Non HDL Chol. (LDL+VLDL) 147(H) <145 mg/dL LAB CHEMISTRY METHOD 09/21/2024 1:34 PM EST [facility] Comment:Unable to calculate when triglycerides >400 mg/dL. Chol/HDL Ratio 3.8 0.0 - 4.4 LAB CHEMISTRY METHOD 09/21/2024 1:34 PM EST [facility] Blood Venous blood specimen / Unknown Venipuncture / Unknown 09/21/2024 9:00 AM EST 09/21/2024 9:00 AM EST Kelle GRIFFIN LAB BLOOD ORDERABLES Final Resul t Performing Organization Address City/[facility]/ZIP Co de Phone Number [facility] [address] [place] [address], [place] [phone] * (ABNORMAL) CBC auto differential (09/21/2024 9:00 AM EST) [facility] WBC 5.6 4.8 - 10.8 K/mcL LAB HEMETOLOGY METHOD 09/21/2024 11:36 AM [facility] RBC 4.90 4.50 - 5.50 M/mcL LAB HEMETOLOGY METHOD 09/21/2024 11:36 AM [facility] Hemoglobin 15.9 13.5 - 17.5 g/dL LAB HEMETOLOGY METHOD 09/21/2024 11:36 AM [facility] Hematocrit 45.7 42.0 - 54.0 % LAB HEMETOLOGY METHOD 09/21/2024 11:36 AM [facility] MCV 92.7 79.0 - 98.0 FL LAB HEMETOLOGY METHOD 09/21/2024 11:36 AM [facility] MCH 32.3(H) 27.0 - 32.0 pcg LAB HEMETOLOGY METHOD 09/21/2024 11:36 AM [facility] MCHC 34.8 32.0 - 37.0 g/dL LAB HEMETOLOGY METHOD 09/21/2024 11:36 AM [facility] RDW 11.2 11.0 - 15.0 % LAB HEMETOLOGY METHOD 09/21/2024 11:36 AM [facility] Platelets 279 130 - 400 K/[facility] LAB HEMETOLOGY METHOD 09/21/2024 11:36 AM [facility] MPV 10.4 7.0 - 11.0 FL LAB HEMETOLOGY METHOD 09/21/2024 11:36 AM [facility] NRBC 0.0 <1.0 % LAB HEMETOLOGY METHOD 09/21/2024 11:36 AM [facility] NRBC Absolute 0.00 <0.10 K/mcL LAB HEMETOLOGY METHOD 09/21/2024 11:36 AM [facility] Neutrophils Relative 63.9 % LAB HEMETOLOGY METHOD 09/21/2024 11:36 AM [facility] Lymphocytes Relative 22.0 % LAB HEMETOLOGY METHOD 09/21/2024 11:36 AM [facility] Monocytes Relative 10.3 % LAB HEMETOLOGY METHOD 09/21/2024 11:36 AM [facility] Eosinophils Relative 2.5 % LAB HEMETOLOGY METHOD 09/21/2024 11:36 AM [facility] Basophils Relative 0.9 % LAB HEMETOLOGY METHOD 09/21/2024 11:36 AM [facility] Immature Granulocytes Relative 0.4 % LAB HEMETOLOGY METHOD 09/21/2024 11:36 AM [facility] Neutrophils Absolute 3.60 1.50 - 7.00 K/mcL LAB HEMETOLOGY METHOD 09/21/2024 11:36 AM [facility] Lymphocytes Absolute 1.24 1.00 - 5.00 K/mcL LAB HEMETOLOGY METHOD 09/21/2024 11:36 AM [facility] Monocytes Absolute 0.58 0.20 - 1.00 K/mcL LAB HEMETOLOGY METHOD 09/21/2024 11:36 AM [facility] Eosinophils Absolute 0.14 0.00 - 0.50 K/mcL LAB HEMETOLOGY METHOD 09/21/2024 11:36 AM [facility] Basophils Absolute 0.05 0.00 - 0.20 K/mcL LAB HEMETOLOGY METHOD 09/21/2024 11:36 AM [facility] Immature Granulocytes Absolute 0.02 0.00 - 0.03 K/mcL LAB HEMETOLOGY METHOD 09/21/2024 11:36 AM [facility] Blood Venous blood specimen / Unknown Venipuncture / Unknown 09/21/2024 9:00 AM EST 09/21/2024 9:00 AM EST us Kelle GRIFFIN LAB BLOOD ORDERABLES Final Resul t [facility] [address] [place] [address], [place] [phone] * (ABNORMAL) Comprehensive metabolic panel (09/21/2024 9:00 AM EST) Sodium 138 133 - 145 mmol/L LAB CHEMISTRY METHOD 09/21/2024 1:22 PM [facility] Potassium 4.4 3.5 - 5.5 mmol/L LAB CHEMISTRY METHOD 09/21/2024 1:22 PM [facility] Chloride 107 96 - 110 mmol/L LAB CHEMISTRY METHOD 09/21/2024 1:22 PM [facility] CO2 25 21 - 32 mmol/L LAB CHEMISTRY METHOD 09/21/2024 1:22 PM [facility] Anion Gap 6 3 - 11 LAB CHEMISTRY METHOD 09/21/2024 1:22 PM [facility] Glucose 106(H) 70 - 100 mg/dL LAB CHEMISTRY METHOD 09/21/2024 1:22 PM [facility] BUN 15 5 - 25 mg/dL LAB CHEMISTRY METHOD 09/21/2024 1:22 PM [facility] Creatinine 1.04 0.70 - 1.30 mg/dL LAB CHEMISTRY METHOD 09/21/2024 1:22 PM [facility] eGFR 81 >=60 mL/min/1. 73m2 LAB CHEMISTRY METHOD 09/21/2024 1:22 PM [facility] Comment:Calculation based on the??Chronic Kidney Disease Epidemiology Collaboration (CKD-EPI) equation refit??without adjustment for race. BUN/Creatinine Ratio 14.4 LAB CHEMISTRY METHOD 09/21/2024 1:22 PM [facility] Calcium 9.7 8.5 - 10.5 mg/dL LAB CHEMISTRY METHOD 09/21/2024 1:22 PM EST [facility] AST (SGOT) 24 10 - 42 unit/L LAB CHEMISTRY METHOD 09/21/2024 1:22 PM [facility] ALT (SGPT) 45 10 - 60 unit/L LAB CHEMISTRY METHOD 09/21/2024 1:22 PM [facility] Alkaline Phosphatase 99 42 - 121 unit/L LAB CHEMISTRY METHOD 09/21/2024 1:22 PM EST [facility] Total Protein 7.8 6.0 - 8.0 g/dL LAB CHEMISTRY METHOD 09/21/2024 1:22 PM [facility] Albumin 4.5 3.2 - 5.0 g/dL LAB CHEMISTRY METHOD 09/21/2024 1:22 PM [facility] Total Bilirubin 1.8(H) 0.0 - 1.4 mg/dL LAB CHEMISTRY METHOD 09/21/2024 1:22 PM EST [facility] Blood Venous blood specimen / Unknown Venipuncture / Unknown 09/21/2024 9:00 AM EST 09/21/2024 9:00 AM EST us Kelle GRIFFIN LAB BLOOD ORDERABLES Final Resul t [facility] [address] [place] [address], * XR Shoulder 2+ Views Right (09/20/2024 11:06 AM EST) Anatomical Region Laterality Modality Upper Extremities, Shoulder Right Radi ographic Imaging 09/20/2024 8:08 PM EST Impressions 09/20/2024 8:11 PM EST No fracture or dislocation. ??Degenerative changes at the acromioclavicular joint. POS - [id number] -------- FINAL REPORT -------- Dictated By: Nisha Matos Dictated Date: 09/20/2024 20:08 ET Assigned Physician: Nisha Matos Reviewed and Electronically Signed By: Nisha Matos Signed Date: 09/20/2024 20:11 ET Workstation ID: [id number] Transcribed By: Self Edit Transcribed Date: 09/20/2024 [...] Degenerative changes at the acromioclavicularjoint. POS - [id number] -------- FINAL REPORT -------- Dictated By: Nisha Matos Dictated Date: 09/20/2024 20:08 ET Assigned Physician: Nisha Matos Reviewed and Electronically Signed By: Nisha Matos Signed Date: 09/20/2024 20:11 ET Workstation ID: [id number] Transcribed By: Self Edit Transcribed Date: 09/20/2024 [...] Most Recently Relevant to Health Maintenance Insurance [facility] Care Teams Telephone Operator Receptionist Relationship Specialty Start Date End Date Samuel Villareal MD [address] [place] [id number] PCP - General 07/01/03
== END 2024-11-13 08:10 | disposition home or self-care (01) ==
LOC: HO.MRI 08:09
PROVIDERS: Visit Provider Physician Assistant
DX: S46.001A Unspecified injury of muscle(s) and tendon(s) of the rotator cuff of right shoulder, initial encounter (principal); M75.101 Unspecified rotator cuff tear or rupture of right shoulder, not specified as traumatic
CPT/HCPCS: 73221

== ENCOUNTER → 2024-11-13 08:15 | Outpatient (BNV) | payer BC, SELFPAY | PROVIDERS: Visit Provider Radiology Diagnostic Radiology | DX: M75.101 Unspecified rotator cuff tear or rupture of right shoulder, not specified as traumatic (principal); M19.011 Primary osteoarthritis, right shoulder | CPT/HCPCS: 73221 ==

== ENCOUNTER 2024-12-20 09:59 | Outpatient (AMB) | payer BC, SELFPAY ==
--- NOTE | 2024-12-20 10:01 | MHC.OFFVIS ---
Intake Visit Reasons: OV - right shoulder MRI review Allergies No Known Allergies Allergy (Verified 11/08/24 09:55) HPI HPI OV - right shoulder MRI review: Details: This is a 64-year-old gentleman who comes in today with right shoulder discomfort and weakness. He is right hand dominant male who slipped and fell on ice 07/14/24, landing directly on the right shoulder.He has trouble sleeping on the right shoulder at night and has limited above the head ROM. Prior to his fall he states he had full range of motion with no weakness or pain. Now he states he has difficulty with some activities. He states it is improving and he is able to play golf which he enjoys but he does feel weak with overhead activity. [facility] Social History (Updated 11/08/24 @ 09:56 by [place]) Alcohol intake: current Alcohol intake frequency: 0-2 drinks per day Patient Tobacco Use Status: Never used Tobacco Current occupational status: retired Current occupation: right hand dominant Physical Exam Extrem Other: Angelito has a 4/5 empty can 45/90/135 with recruitment/L 5 Results Reviewed Results Reviewed: I personally reviewed the MR images. IMPRESSION: 1. Complete supraspinatus tear with retraction and muscle atrophy. 2. Subdeltoid, subacromial, and subcoracoid fluid. 3. Moderate acromioclavicular degenerative change. Assessment & Plan Assessment & Plan (1) Rotator cuff tear, right: Code(s): M75.101 - Unspecified rotator cuff tear or rupture of right shoulder, not specified as traumatic Category: Medical Plan: This is a 64-year-old gentleman with a full-thickness tear of his right rotator cuff. I reviewed the MRI and I do think that portions of the cuff are intact and that it may be repairable or at least partially repairable. I discussed this with him. His mechanics are poor and I do think he would benefit from physical therapy and a prescription was sent to [facility] in [place]. He would like to get through the summer prior to surgery. I will see him back in 3 months' time and will have additional discussion regarding surgery. I did explain to him the rationale for surgery and the fact that it is a full-thickness tear that may be repairable I think it is better to try to repair sooner rather than later . He expressed understanding. Orders: Orders PT Evaluation and Treatment Today M75.101 - Unspecified rotator cuff tear or rupture of right shoulder, not specified as traumatic Coding Level of Care Code Est Pt Level 4 (76698) Diagnoses Rotator cuff tear, right M75.101
--- OUTSIDE RECORDS SUMMARY | 2024-12-20 10:20 | XMS_ITS | Clinical Summary ---
Author Organization [facility] [address] [facility] lding Address [address] [place] [address] Phone Care Team Providers Care Brim And Crown Presser Name Role Phone Samuel Villareal MD Primary Care Provider [phone] Allergies No known active allergies Medications losartan (COZAAR) 50 mg tablet TAKE 1 TABLET BY MOUTH EVERY DAY 90 tablet 1 07/27/2024 Active Active Problems Problem Noted Date Diagnosed Date Overweight (BMI 25.0-29.9) 05/17/2023 Hypertriglyceridemia 09/22/2021 Overview (2024): ASCVD risk 8.2% in 08/2021 Primary hypertension 09/22/2021 Encounters Date Type Department Care Team Description 10/17/2024 Telephone Adult [facility] [address] [place] [address] Samuel Villareal MD 10/11/2024 Telephone Adult [facility] [address] [place] [phone] Samuel Villareal MD [facility] 09/24/2024 Telephone Adult [facility] [address] [place] [address] Samuel Villareal MD Referral from Last 3 Months Immunizations Name Administration [...] 8:45 AM EDT Office Visit Adult Medicine - [place] [address] [place] [phone] Samuel Villareal MD [address] [place] [address] Health Maintenance Due Date Last Done Comments [...] LDL Routine 09/21/2024 9:00 AM EST Hypertriglyceridemia HM COLONOSCOPY Routine 12/28/2021 HEPATITIS C SCREENING Routine 04/14/2015 from Last 3 Months or Most Recently Relevant to Health Maintenance Results * Prostate specific antigen screen (09/21/2024 9:00 AM EST) PSA 1.43 0.00 - 4.00 ng/mL LAB CHEMISTRY METHOD 09/21/2024 2:50 PM EST [facility] Blood Venous blood specimen / Unknown Venipuncture / Unknown 09/21/2024 9:00 AM EST 09/21/2024 9:00 AM EST Narrative [facility] - 09/21/2024 2:50 PM EST The Siemens Advia Centaur Chemiluminescent Immunoassay is used. Results obtained with different assay methods or kits cannot be used interchangeably. Results cannot be interpreted as absolute evidence of the presence or absence of malignant disease. us Kelle GRIFFIN LAB BLOOD ORDERABLES Final Resul t [facility] [address] [place] [address], * (ABNORMAL) Lipid panel with reflex to direct LDL (09/21/2024 9:00 AM EST) Cholesterol 200 0 - 200 mg/dL LAB CHEMISTRY METHOD 09/21/2024 1:34 PM EST [facility] Triglycerides 430(H) 0 - 150 mg/dL LAB CHEMISTRY METHOD 09/21/2024 1:34 PM EST [facility] HDL 53 >=40 mg/dL LAB CHEMISTRY METHOD 09/21/2024 1:34 PM EST [facility] LDL Calculated 61 0 - 100 mg/dL LAB CHEMISTRY METHOD 09/21/2024 1:34 PM EST [facility] Comment:Unable to calculate when triglycerides >400 mg/dL. VLDL Cholesterol Juarez 86 mg/dL LAB CHEMISTRY METHOD 09/21/2024 1:34 PM EST [facility] Comment:Unable to calculate when triglycerides >400 mg/dL. Non HDL Chol. (LDL+VLDL) 147(H) <145 mg/dL LAB CHEMISTRY METHOD 09/21/2024 1:34 PM EST [facility] Comment:Unable to calculate when triglycerides >400 mg/dL. Chol/HDL Ratio 3.8 0.0 - 4.4 LAB CHEMISTRY METHOD 09/21/2024 1:34 PM [facility] Blood Venous blood specimen / Unknown Venipuncture / Unknown 09/21/2024 9:00 AM EST 09/21/2024 9:00 AM EST Kelle GRIFFIN LAB BLOOD ORDERABLES Final Resul t [facility] [address] [place] [address], * (ABNORMAL) CBC auto differential (09/21/2024 9:00 AM EST) WBC 5.6 4.8 - 10.8 K/mcL LAB HEMETOLOGY METHOD 09/21/2024 11:36 AM EST [facility] RBC 4.90 4.50 - 5.50 M/mcL LAB HEMETOLOGY METHOD 09/21/2024 11:36 AM [facility] Hemoglobin 15.9 13.5 - 17.5 g/dL LAB HEMETOLOGY METHOD 09/21/2024 11:36 AM EST [facility] Hematocrit 45.7 42.0 - 54.0 % LAB HEMETOLOGY METHOD 09/21/2024 11:36 AM [facility] MCV 92.7 79.0 - 98.0 FL LAB HEMETOLOGY METHOD 09/21/2024 11:36 AM [facility] MCH 32.3(H) 27.0 - 32.0 pcg LAB HEMETOLOGY METHOD 09/21/2024 11:36 AM [facility] MCHC 34.8 32.0 - 37.0 g/dL LAB HEMETOLOGY METHOD 09/21/2024 11:36 AM [facility] RDW 11.2 11.0 - 15.0 % LAB HEMETOLOGY METHOD 09/21/2024 11:36 AM [facility] Platelets 279 130 - 400 K/mcL LAB HEMETOLOGY METHOD 09/21/2024 11:36 AM [facility] MPV 10.4 7.0 - 11.0 FL LAB HEMETOLOGY METHOD 09/21/2024 11:36 AM [facility] NRBC 0.0 <1.0 % LAB HEMETOLOGY METHOD 09/21/2024 11:36 AM [facility] NRBC Absolute 0.00 <0.10 K/mcL LAB HEMETOLOGY METHOD 09/21/2024 11:36 AM [facility] Neutrophils Relative 63.9 % LAB HEMETOLOGY METHOD 09/21/2024 11:36 AM [facility] Lymphocytes Relative 22.0 % LAB HEMETOLOGY METHOD 09/21/2024 11:36 AM [facility] Monocytes Relative 10.3 % LAB HEMETOLOGY METHOD 09/21/2024 11:36 AM [facility] Eosinophils Relative 2.5 % LAB HEMETOLOGY METHOD 09/21/2024 11:36 AM [facility] Basophils Relative 0.9 % LAB HEMETOLOGY METHOD 09/21/2024 11:36 AM [facility] Immature Granulocytes Relative 0.4 % LAB HEMETOLOGY METHOD 09/21/2024 11:36 AM [facility] Neutrophils Absolute 3.60 1.50 - 7.00 K/mcL LAB HEMETOLOGY METHOD 09/21/2024 11:36 AM [facility] Lymphocytes Absolute 1.24 1.00 - 5.00 K/mcL LAB HEMETOLOGY METHOD 09/21/2024 11:36 AM [facility] Monocytes Absolute 0.58 0.20 - 1.00 K/mcL LAB HEMETOLOGY METHOD 09/21/2024 11:36 AM [facility] Eosinophils Absolute 0.14 0.00 - 0.50 K/mcL LAB HEMETOLOGY METHOD 09/21/2024 11:36 AM [facility] Basophils Absolute 0.05 0.00 - 0.20 K/mcL LAB HEMETOLOGY METHOD 09/21/2024 11:36 AM [facility] Immature Granulocytes Absolute 0.02 0.00 - 0.03 K/mcL LAB HEMETOLOGY METHOD 09/21/2024 11:36 AM [facility] Blood Venous blood specimen / Unknown Venipuncture / Unknown 09/21/2024 9:00 AM EST 09/21/2024 9:00 AM EST us Kelle GRIFFIN LAB BLOOD ORDERABLES Final Resul t [facility] [address] [place] [address], * (ABNORMAL) Comprehensive metabolic panel (09/21/2024 9:00 AM EST) Sodium 138 133 - 145 mmol/L LAB CHEMISTRY METHOD 09/21/2024 1:22 PM [facility] Potassium 4.4 3.5 - 5.5 mmol/L LAB CHEMISTRY METHOD 09/21/2024 1:22 PM [facility] Chloride 107 96 - 110 mmol/L LAB CHEMISTRY METHOD 09/21/2024 1:22 PM [facility] CO2 25 21 - 32 mmol/L LAB CHEMISTRY METHOD 09/21/2024 1:22 PM [facility] Anion Gap 6 3 - 11 LAB CHEMISTRY METHOD 09/21/2024 1:22 PM [facility] Glucose 106(H) 70 - 100 mg/dL LAB CHEMISTRY METHOD 09/21/2024 1:22 PM [facility] BUN 15 5 - 25 mg/dL LAB CHEMISTRY METHOD 09/21/2024 1:22 PM [facility] Creatinine 1.04 0.70 - 1.30 mg/dL LAB CHEMISTRY METHOD 09/21/2024 1:22 PM [facility] eGFR 81 >=60 mL/min/1. 73m2 LAB CHEMISTRY METHOD 09/21/2024 1:22 PM [facility] Comment:Calculation based on the??Chronic Kidney Disease Epidemiology Collaboration (CKD-EPI) equation refit??without adjustment for race. BUN/Creatinine Ratio 14.4 LAB CHEMISTRY METHOD 09/21/2024 1:22 PM [facility] Calcium 9.7 8.5 - 10.5 mg/dL LAB CHEMISTRY METHOD 09/21/2024 1:22 PM [facility] AST (SGOT) 24 10 - 42 unit/L LAB CHEMISTRY METHOD 09/21/2024 1:22 PM [facility] ALT (SGPT) 45 10 - 60 unit/L LAB CHEMISTRY METHOD 09/21/2024 1:22 PM [facility] Alkaline Phosphatase 99 42 - 121 unit/L LAB CHEMISTRY METHOD 09/21/2024 1:22 PM [facility] Total Protein 7.8 6.0 - 8.0 g/dL LAB CHEMISTRY METHOD 09/21/2024 1:22 PM EST [facility] Albumin 4.5 3.2 - 5.0 g/dL LAB CHEMISTRY METHOD 09/21/2024 1:22 PM EST [facility] Total Bilirubin 1.8(H) 0.0 - 1.4 mg/dL LAB CHEMISTRY METHOD 09/21/2024 1:22 PM EST [facility] Blood Venous blood specimen / Unknown Venipuncture / Unknown 09/21/2024 9:00 AM EST 09/21/2024 9:00 AM EST Kelle GRIFFIN LAB BLOOD ORDERABLES Final Resul t [facility] [address] [place] [address], * Colonoscopy (12/28/2021) [facility] Colonoscopy No interpreta tion,abstr acted Anatomical Region Laterality Modality Other Historical Provider HEALTH MAINTENANCE Final Result * Hepatitis C Screening (04/14/2015) [facility] Hepatitis C Screening Abstracted Historical Provider HEALTH MAINTENANCE Final Result from Last 3 Months or Most Recently Relevant to Health Maintenance Insurance [facility] Care Teams Brim And Crown Presser Relationship Specialty Start Date End Date Samuel Villareal MD [address] [place] [id number] PCP - General 07/01/03
== END 2024-12-20 10:48 | disposition home or self-care (01) ==
LOC: HO.HOS 09:59
PROVIDERS: PCP Pediatrics; Visit Provider Orthopaedic Surgery
DX: M75.101 Unspecified rotator cuff tear or rupture of right shoulder, not specified as traumatic (principal)
CPT/HCPCS: 99213

== ENCOUNTER 2025-02-05 08:49 | Outpatient (RCR) | payer BC, SELFPAY ==
[2024-10-11 10:00] VITALS: BP 140/70; PULSE 97; O2SAT 78
== END 2025-04-02 07:48 | disposition home or self-care (01) ==
LOC: HO.PTS 08:49
PROVIDERS: PCP Pediatrics; Visit Provider Pediatrics
DX: M75.101 Unspecified rotator cuff tear or rupture of right shoulder, not specified as traumatic (principal); M25.511 Pain in right shoulder
CPT/HCPCS: 97014; 97110; 97140; 97161; 97164; 97535

== ENCOUNTER 2025-03-21 08:36 | Outpatient (AMB) | payer BC, SELFPAY ==
--- NOTE | 2025-03-21 08:46 | A.OFFVIS_ITS ---
Intake Visit Reasons: OV- Right shoulder supraspinatus tear Intake Note: Jairo is a 64 year old right hand dominant male who presents today for a follow up of his Right Shoulder Pain & Weakness. Slip & fall on Ice 07/14/24. At his last visit we sent him for PT and will re-discuss surgery today. Currently he reports that he has made some improvments with his pain but continues to have limited ROM that becomes painful Allergies No Known Allergies Allergy (Verified 11/08/24 09:55) HPI HPI OV- Right shoulder supraspinatus tear: Details: Jairo is a 64 year old right hand dominant male who presents today for a follow up of his Right Shoulder Pain & Weakness. Slip & fall on Ice 07/14/24. At his last visit we sent him for PT and will re-discuss surgery today. Currently he reports that he has made some improvement with his pain but continues to have limited ROM that becomes painful . He is playing golf and overall feels fine. He does not know difficulty with overhead activities. [facility], [facility] Social History (Updated 11/08/24 @ 09:56 by [place]) Alcohol intake: current Alcohol intake frequency: 0-2 drinks per day Patient Tobacco Use Status: Never used Tobacco Current occupational status: retired Current occupation: right hand dominant Physical Exam Extrem Other: Scapular recruitment with abduction past 70 degrees. Forward flexion to 130. External rotation to 45. 4/5 empty can Assessment & Plan Assessment & Plan (1) Rotator cuff tear, right: Code(s): M75.101 - Unspecified rotator cuff tear or rupture of right shoulder, not specified as traumatic Category: Medical Plan: This is a 64-year-old with a large full-thickness rotator cuff tear. He is functional and does not have pain. We discussed treatment options including surgery. At this point however he wants to continue nonoperative management. He states he feels well and does not want to undergo rotator cuff repair or shoulder replacement. I explained the natural history of a full-thickness rotator cuff tear. He expressed understanding. He will see me back in the future if necessary or if his pain worsens. Coding Level of Care Code Est Pt Level 4 (07934) Diagnoses Rotator cuff tear, right M75.101
--- OUTSIDE RECORDS SUMMARY | 2025-03-21 09:16 | XMS_ITS | Clinical Summary ---
Author Organization [facility] 230 [facility] lding Address [address] [place] [address] Phone Care Team Providers Care Splitter Head Name Role Phone Samuel Villareal MD Primary Care Provider [phone] Allergies No known active allergies Medications losartan (COZAAR) 50 mg tablet TAKE 1 TABLET BY MOUTH EVERY DAY 90 tablet 1 07/27/2024 Active Active Problems Problem Noted Date Diagnosed Date Overweight (BMI 25.0-29.9) 05/17/2023 Hypertriglyceridemia 09/22/2021 Overview (2024): ASCVD risk 8.2% in 08/2021 Primary hypertension 09/22/2021 Immunizations Name Administration Dates Next Due Td [...] 86 09/20/2024 10:34 AM EST Temperature 36.7 C (98 F) 09/20/2024 10:34 AM EST Respiratory Rate - - Oxygen Saturation - - Inhaled Oxygen Concentration - - Weight 92.1 kg (203 lb) 09/20/2024 10:34 AM EST Height 182.9 cm (6') 09/20/2024 10:34 AM EST Body Mass Index 27.53 09/20/2024 10:34 AM EST Plan of Treatment Upcoming Encounters Date Type Department Care Team (Late st Contact Info) Description 04/05/2025 10:00 AM EDT Office Visit Adult Medicine - [address] [phone] Shae Courtney, TODD [address] [place] [address] Health Maintenance Due Date Last Done Comments Pneumococcal Vaccine: 50+ Years (1 of 1 - PCV) 2011 HIV Screening 07/04/2022 Social Influencers of Health Screening 07/04/2022 COVID-19 Vaccine (3 - 2023-2 5 season) 2024 12/09/2020, 11/11/2020 Depression Screening 07/25/2024 Influenza Vaccine (#1) 2025 Hypertension/CHF/CAD Annual BMP Blood Test 09/21/2025 [...] Procedure Name Priority Date/Time Associated Diagnosis Comments COMPREHENSIVE METABOLIC PANEL Routine 09/21/2024 9:00 AM EST Primary hypertension LIPID PANEL WITH REFLEX TO DIRECT LDL Routine 09/21/2024 9:00 AM EST Hypertriglyceridemia COLONOSCOPY Routine 12/28/2021 HEPATITIS C SCREENING Routine 04/14/2015 from Last 3 Months or Most Recently Relevant to Health Maintenance Results * (ABNORMAL) Lipid panel with reflex to direct LDL (09/21/2024 9:00 AM EST) Cholesterol 200 0 - 200 mg/dL LAB CHEMISTRY METHOD 09/21/2024 1:34 PM EST [facility] Triglycerides 430(H) 0 - 150 mg/dL LAB CHEMISTRY METHOD 09/21/2024 1:34 PM EST [facility] HDL 53 >=40 mg/dL LAB CHEMISTRY METHOD 09/21/2024 1:34 PM EST [facility] LDL Calculated 61 0 - 100 mg/dL LAB CHEMISTRY METHOD 09/21/2024 1:34 PM [facility] Comment:Unable to calculate when triglycerides >400 mg/dL. VLDL Cholesterol Juarez 86 mg/dL LAB CHEMISTRY METHOD 09/21/2024 1:34 PM [facility] Comment:Unable to calculate when triglycerides >400 mg/dL. Non HDL Chol. (LDL+VLDL) 147(H) <145 mg/dL LAB CHEMISTRY METHOD 09/21/2024 1:34 PM [facility] Comment:Unable to calculate when triglycerides >400 mg/dL. Chol/HDL Ratio 3.8 0.0 - 4.4 LAB CHEMISTRY METHOD 09/21/2024 1:34 PM [facility] Blood Venous blood specimen / Unknown Venipuncture / Unknown 09/21/2024 9:00 AM EST 09/21/2024 9:00 AM EST us Kelle GRIFFIN LAB BLOOD ORDERABLES Final Resul t [facility] [address] [place] [address], [place] [phone] * (ABNORMAL) Comprehensive metabolic panel (09/21/2024 9:00 [...] [facility] Comment:Calculation based on the Chronic Kidney Disease Epidemiology Collaboration (CKD-EPI) equation refit without adjustment for race. BUN/Creatinine Ratio 14.4 LAB [...] g/dL LAB CHEMISTRY METHOD 09/21/2024 1:22 PM [facility] Albumin 4.5 3.2 - 5.0 g/dL LAB CHEMISTRY METHOD 09/21/2024 1:22 PM [facility] Total Bilirubin 1.8(H) 0.0 - 1.4 mg/dL LAB CHEMISTRY METHOD 09/21/2024 1:22 PM EST [facility] Blood Venous blood specimen / Unknown Venipuncture / Unknown 09/21/2024 9:00 AM EST 09/21/2024 9:00 AM EST Kelle GRIFFIN LAB BLOOD ORDERABLES Final Resul t [facility] [address] [place] [address], * Colonoscopy (12/28/2021) Colonoscopy No interpreta tion,abstr acted Anatomical Region Laterality Modality Other Historical Provider HEALTH MAINTENANCE Final Result * Hepatitis C Screening (04/14/2015) Hepatitis C Screening Abstracted Historical Provider HEALTH MAINTENANCE Final Result from Last 3 Months or Most Recently Relevant to Health Maintenance Insurance [facility] Care Teams Splitter Head Relationship Specialty Start Date End Date Samuel Villareal MD [address] [place] [phone] PCP - General 07/01/03
== END 2025-03-21 09:49 | disposition home or self-care (01) ==
LOC: HO.HOS 08:37
PROVIDERS: PCP Pediatrics; Visit Provider Orthopaedic Surgery
DX: M75.101 Unspecified rotator cuff tear or rupture of right shoulder, not specified as traumatic (principal)
CPT/HCPCS: 99214